=== PATIENT | female | born 1990 | race Asian ===

== ENCOUNTER 2017-09-24 12:04 | Emergency (ER) | payer SELFPAY ==
[~2017-09-24] VITALS: Ht 167.6 cm; Wt 69.5 kg
[2017-09-24 16:17] VITALS: BP 108/68
== END 2017-09-24 16:15 | disposition home or self-care (01) ==
LOC: ED 12:04
DX: S83.91XA Sprain of unspecified site of right knee, initial encounter (principal); X58.XXXA Exposure to other specified factors, initial encounter; Y93.89 Activity, other specified; Y92.89 Other specified places as the place of occurrence of the external cause; Y99.8 Other external cause status